=== PATIENT | male | born 1980 | race African-American/Black ===

== ENCOUNTER 2024-01-04 06:19 | Emergency (ER) | payer BC ==
[2024-01-04] MEDS: Ketorolac 60 MG/2 ML SDV IM ONE (06:50)
[2024-01-04] MEDS: Cyclobenzaprine 10 MG Tab PO ONE (07:50)
[2024-01-04] MEDS: Lidocaine 4% 1 each Patch TOP PRN (07:50)
== END 2024-01-04 08:06 | disposition home or self-care (01) ==
LOC: MW.ED 06:19
DX: M54.50 Low back pain, unspecified (principal); Z79.899 Other long term (current) drug therapy; Z75.8 Other problems related to medical facilities and other health care; W01.0XXA Fall on same level from slipping, tripping and stumbling without subsequent striking against object, initial encounter
CPT/HCPCS: 72100; 72220; 73502; 96372; 99283; A9270; J1885

== ENCOUNTER 2024-01-12 18:26 | Emergency (ER) | payer BC ==
[2024-01-12] MEDS: Acetaminophen/oxyCODONE 325-10 MG Tab PO ONE (19:09)
== END 2024-01-12 19:23 | disposition home or self-care (01) ==
LOC: MW.ED 18:26
DX: M54.41 Lumbago with sciatica, right side (principal); Z75.8 Other problems related to medical facilities and other health care; Z79.899 Other long term (current) drug therapy
CPT/HCPCS: 99283; A9270